=== PATIENT | male | born 1955 | race Two or more races ===

== ENCOUNTER 2019-08-26 07:00 | Day surgery (SDC) | payer OTHER ==
[~2019-08-26 07:00] MED LIST: DICLOFENAC POTA50 MG; ULTRAM50 MG
== END 2019-08-26 13:00 | disposition home or self-care (01) ==
LOC: CIR.AMB 07:00
DX: S62.326A Displaced fracture of shaft of fifth metacarpal bone, right hand, initial encounter for closed fracture (principal); S62.394A Other fracture of fourth metacarpal bone, right hand, initial encounter for closed fracture

== ENCOUNTER 2019-12-22 11:45 | Inpatient (IN) | payer OTHER ==
[~2019-12-22] VITALS: Ht 182.9 cm; Wt 93.9 kg
[2019-12-22] MEDS ORDERED: CATAFLAN PO (12:27)
[2019-12-22] MEDS ORDERED: COZAAR25 MG PO (14:11)
[2019-12-28] MEDS ORDERED: DICLOFENAC SODI50 MG PO (09:59)
[2019-12-28] MEDS ORDERED: CLONAZEPAM1 MG PO (12:18)
[2019-12-28] MEDS ORDERED: PERCOCET 5-3251 EACH PO (12:18)
[2019-12-28] MEDS ORDERED: COLACE100 MG PO (12:18)
[2019-12-28] MEDS ORDERED: MEDROLPACK PO (12:18)
== END 2019-12-29 11:30 | disposition home or self-care (01) | DRG 29 ==
LOC: O/R 12-28 04:54 → SURG 12-28 04:54 → SURH 12-28 10:15 → O/R 12-28 11:45 → SURG 12-28 13:44
PROVIDERS: ADMIT Orthopaedic Surgery Orthopaedic Surgery of the Spine
PROC: 0RT30ZZ Resection of Cervical Vertebral Disc, Open Approach (ICD-10-PCS; 2019-12-28)
PROC: 0RG20A0 Fusion of 2 or more Cervical Vertebral Joints with Interbody Fusion Device, Anterior Approach, Anterior Column, Open Approach (ICD-10-PCS; principal; 2019-12-28 10:15)
DX: M54.12 Radiculopathy, cervical region (principal); M50.021 Cervical disc disorder at C4-C5 level with myelopathy